=== PATIENT | male | born 1945 | race Caucasian/White ===

== ENCOUNTER 2018-05-12 17:11 | Emergency (ER) | payer MEDICARE, OTHER ==
[2018-05-12] MEDS ORDERED: SODIUM CHLORIDE 0.9% 1,000 ML IV STA ×3 (17:53→19:36)
[2018-05-12] MEDS ORDERED: ACETAMINOPHEN TAB 500 MG TAB PO STA (17:53)
[2018-05-12] MEDS ORDERED: DIPH,PERTUS(ACELL)TETVAC-LF 0.5 ML VIAL IM ONE (17:53)
[2018-05-12] MEDS ORDERED: RX INFO: IV CONTRAST WAS GIVEN 1 EACH MISC MISCELLANE PRN (17:54)
[2018-05-12] MEDS ORDERED: ceFAZolin IN SWFI 2 GM/20 ML SYRINGE IVP STA (17:54)
[2018-05-12 18:25] LABS: ALT 29 U/L (21-72); AST 27 U/L (17-59); Albumin 3.9 g/dL (3.5-5.0); Alcohol 78 mg/dL; Alkaline Phosphatase 86 U/L (38-126); Anion Gap 10 mmol/L; Blood Urea Nitrogen 15 mg/dL (9-20); Calcium 9.1 mg/dL (8.4-10.2); Carbon Dioxide 25 mmol/L (22-30); Chloride 103 mmol/L (98-107); Glucose 92 mg/dL (74-99); Potassium 4.1 mmol/L (3.5-5.1); Sodium 138 mmol/L (137-145); Total Bilirubin 0.4 mg/dL (0.2-1.3); Total Protein 6.7 g/dL (6.3-8.2)
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
[2018-05-12 18:26] LABS: Partial Thromboplastin Time 23.4 sec (22.0-30.0); Prothrombin Time 10.1 sec (9.0-12.0)
[2018-05-12 18:27] LABS: Appearance,Urine Clear (Clear); Bilirubin,Urine Negative (Negative); Blood,Urine Negative (Negative); Color,Urine Yellow; Glucose,Urine (UA) Negative (Negative); Ketones,Urine Negative (Negative); Leukocyte Esterase,Urine Negative (Negative); Nitrite,Urine Negative (Negative); Protein,Urine Trace (Negative); Specific Gravity,Urine 1.014 (1.001-1.035); Urobilinogen,Urine <2.0 mg/dL (<2.0)
[2018-05-12 18:33] LABS: Basophils # (A) 0.1 k/uL (0-0.2); Basophils % (A) 0 %; Eosinophils # (A) 0.3 k/uL (0-0.7); Eosinophils % (A) 2 %; HCT 44.4 % (39.0-53.0); HGB 14.6 gm/dL (13.0-17.5); Lymphocytes # (A) 1.6 k/uL (1.0-4.8); Lymphocytes % (A) 12 %; MCH 31.5 pg (25.0-35.0); MCV 95.6 fL (80.0-100.0); Mean Platelet Volume 6.1; Monocytes # (A) 0.6 k/uL (0-1.0); Monocytes % (A) 4 %; Neutrophils # (A) 10.7 k/uL (1.3-7.7); Neutrophils % (A) 80 %; Platelet Count 292 k/uL (150-450); RBC 4.64 m/uL (4.30-5.90); RDW 13.2 % (11.5-15.5); WBC 13.3 k/uL (3.8-10.6)
[2018-05-12 18:37] LABS: Amphetamine Screen,Urine Not Detected (NotDetected); Barbiturate Screen,Urine Not Detected (NotDetected); Benzodiazepines Screen,Urine Not Detected (NotDetected); Cocaine Screen,Urine Not Detected (NotDetected); Methadone Screen, Urine Not Detected (NotDetected); Opiate Screen,Urine Not Detected (NotDetected); Oxycodone Screen, Urine Not Detected (NotDetected); Phencyclidine Screen,Urine Not Detected (NotDetected); Tricyclic Antidepressant,Urine Not Detected (NotDetected); Urn Cannabinoid Scrn Not Detected (NotDetected)
[2018-05-12 18:40] LABS: Creatine Kinase 328 U/L (55-170)
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
[2018-05-12 18:53] LABS: Creatine Kinase MB 1.1 ng/mL (0.0-2.4); Troponin I <0.012 ng/mL (0.000-0.034)
[2018-05-12] MEDS ORDERED: ONDANSETRON 4 MG/2 ML VIAL IVP STA (19:36)
[2018-05-12] MEDS ORDERED: MORPHINE SULFATE 4 MG/ML SYRINGE IVP STA (19:36)
[2018-05-12 19:42] VITALS: BP 111/59; PULSE 80; RESP 17; TEMP 97.8
== END 2018-05-12 20:16 | disposition other institution (70) ==
LOC: EC 17:11
DX: S72.451B Displaced supracondylar fracture without intracondylar extension of lower end of right femur, initial encounter for open fracture type I or II (principal); F10.120 Alcohol abuse with intoxication, uncomplicated; S05.41XA Penetrating wound of orbit with or without foreign body, right eye, initial encounter; K21.9 Gastro-esophageal reflux disease without esophagitis; Z85.820 Personal history of malignant melanoma of skin; Z98.890 Other specified postprocedural states; Z79.899 Other long term (current) drug therapy; Z23 Encounter for immunization; W11.XXXA Fall on and from ladder, initial encounter
CPT/HCPCS: 99285 ×2; 27503 ×2; 96374 ×2; 96375 ×3; 96361 ×3; 90471 ×2; 36415; 93005; 86900; 86901; 80053; 82550; 82553; 83605; 84484; 85025; 85610; 85730; 86850; 81003; 80306; 73560; 90715; G0480; J2270; J2405; J0690; 80320

== ENCOUNTER 2018-06-10 13:09 | Emergency (ER) | payer MEDICARE, OTHER ==
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
[2018-06-10 14:52] LABS: Basophils % (A) 0 %; Eosinophils # (A) 0.2 k/uL (0-0.7); Eosinophils % (A) 2 %; Lymphocytes # (A) 1.9 k/uL (1.0-4.8); Lymphocytes % (A) 21 %; MCH 32.4 pg (25.0-35.0); MCV 95.1 fL (80.0-100.0); Mean Platelet Volume 6.3; Monocytes # (A) 0.7 k/uL (0-1.0); Monocytes % (A) 7 %; Neutrophils # (A) 5.8 k/uL (1.3-7.7); Neutrophils % (A) 66 %; Platelet Count 329 k/uL (150-450); RDW 13.4 % (11.5-15.5); WBC 8.7 k/uL (3.8-10.6)
[2018-06-10 15:00] LABS: HGB 13.3 gm/dL (13.0-17.5)
[2018-06-10 15:01] LABS: ALT 43 U/L (21-72); AST 30 U/L (17-59); Albumin 3.7 g/dL (3.5-5.0); Alkaline Phosphatase 157 U/L (38-126); Anion Gap 8 mmol/L; Blood Urea Nitrogen 20 mg/dL (9-20); Calcium 9.3 mg/dL (8.4-10.2); Carbon Dioxide 26 mmol/L (22-30); Chloride 104 mmol/L (98-107); Glucose 102 mg/dL (74-99); Partial Thromboplastin Time 27.7 sec (22.0-30.0); Potassium 4.5 mmol/L (3.5-5.1); Sodium 138 mmol/L (137-145); Total Bilirubin 0.5 mg/dL (0.2-1.3)
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
[2018-06-10 15:48] VITALS: BP 119/70; PULSE 77; RESP 20; TEMP 98.1
== END 2018-06-10 15:48 | disposition home or self-care (01) ==
LOC: EC 13:09
DX: T81.41XA Infection following a procedure, superficial incisional surgical site, initial encounter (principal); K21.9 Gastro-esophageal reflux disease without esophagitis; Z87.19 Personal history of other diseases of the digestive system; Z85.820 Personal history of malignant melanoma of skin; Z98.890 Other specified postprocedural states; Z79.899 Other long term (current) drug therapy
CPT/HCPCS: 36415; 80053; 83605; 85025; 85610; 85730; 87040; 99283

== ENCOUNTER → 2018-12-07 | Outpatient (CLI) | payer MEDICARE, OTHER ==
[2018-12-07 10:33] LABS: HCT 46.3 % (39.0-53.0); HGB 15.8 gm/dL (13.0-17.5); MCH 30.5 pg (25.0-35.0); MCHC 34.1 g/dL (31.0-37.0); MCV 89.6 fL (80.0-100.0); Mean Platelet Volume 6.8; Platelet Count 350 k/uL (150-450); RBC 5.17 m/uL (4.30-5.90); RDW 14.8 % (11.5-15.5); WBC 9.4 k/uL (3.8-10.6)
[2018-12-07 11:30] LABS: Erythrocyte Sedimentation Rate 17 mm/hr (0-15)
== END ==
LOC: LABWHC1 09:30
PROVIDERS: ATTEND Orthopaedic Surgery
DX: E55.9 Vitamin D deficiency, unspecified (principal)
CPT/HCPCS: 36415; 82306; 85027; 85652; 86140

== ENCOUNTER 2019-01-22 13:13 | Emergency (ER) | payer MEDICARE, OTHER ==
[2019-01-22 15:00] VITALS: RESP 18
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
--- NOTE | 2019-01-22 16:00 | US ---
EXAMINATION TYPE: US venous doppler duplex UE RT DATE OF EXAM: 01/22/2019 COMPARISON: NONE CLINICAL HISTORY: Pain. Pain right arm x 4 days. PT on blood thinners. No HX DVT. PICC line placed . SIDE PERFORMED: Right Right Arm: Right cephalic vein appears non-compressible and shows minimal color flow. Echoes seen judith rounding PICC line. No evidence of DVT in the right upper extremity. IMPRESSION: Positive superficial venous thrombosis surrounding the PICC line within the right cephali c vein. No sonographic evidence of deep venous fibrosis within the right upper extremity.
[2019-01-22 16:45] VITALS: BP 117/70; PULSE 87; TEMP 97.6
== END 2019-01-22 16:45 | disposition home or self-care (01) ==
LOC: EC 13:13 → SUPCPDRO 13:13 → EC 16:45
DX: I80.8 Phlebitis and thrombophlebitis of other sites (principal); K21.9 Gastro-esophageal reflux disease without esophagitis; Z79.899 Other long term (current) drug therapy; Z85.820 Personal history of malignant melanoma of skin
CPT/HCPCS: 99283

== ENCOUNTER → 2019-04-03 | Outpatient (CLI) | payer MEDICARE, OTHER ==
--- NOTE | 2019-04-03 09:14 | CT ---
EXAMINATION TYPE: CT chest wo con DATE OF EXAM: 04/03/2019 COMPARISON: None HISTORY: Interstitial pulmonary disease,unspecified CT DLP: 422 mGycm. Automated Exposure Control for Dose Reduction was Utilized. TECHNIQUE: CT scan of the thorax is performed without IV contrast. FINDINGS: LUNGS: Diffuse bronchiectasis, which appears worse in the lung bases. Scattered groundglass interstit ial opacities predominantly located along the periphery of the bilateral lungs and appearing worse in the lung bases. Mild fibrosis is seen at the bilateral lateral and posterior lower lobes. Calcified granuloma is seen in the anteromedial left upper lobe on image 16. There is a confluence of soft tissue density seen in the right infrahilar region on image 32 with sli ghtly asymmetric right-sided nidia prominence. No pleural effusion. MEDIASTINUM: Lack of IV contrast is noted to limit evaluation for mediastinal and especially hilar ad enopathy. There are a few enlarged mediastinal lymph nodes with the largest seen measuring up to 1.2 cm and on image 21 located to the right and anterior to the trachea. No evidence of axillary lymphade nopathy. No cardiomegaly or pericardial effusion is seen. OTHER: Right-sided upper pole renal cyst measuring up to 2.3 cm. Otherwise, visualized upper abdomen is grossly unremarkable. Mild kyphosis of the thoracic spine. No acute compression deformity. IMPRESSION: Diffuse interstitial lung disease and bronchiectasis with early pulmonary fibrosis seen in the inferi or lower lobes. [place] of soft tissue density seen in the right infrahilar region with slightly asymmetric medias tinal lymphadenopathy. Infrahilar mass would be difficult to exclude on noncontrast imaging. Further evaluation with CT of the chest with contrast is recommended.
== END | disposition home or self-care (01) ==
LOC: RADCTMAIN 08:16
PROVIDERS: ATTEND Family Medicine
DX: J47.9 Bronchiectasis, uncomplicated (principal); J84.10 Pulmonary fibrosis, unspecified
CPT/HCPCS: 71250

== ENCOUNTER 2019-04-04 23:54 | Emergency (ER) | payer MEDICARE, OTHER ==
[2019-04-05 00:08] VITALS: BP 123/75; PULSE 85; RESP 20; TEMP 97.9
[2019-04-05 01:11] LABS: Basophils # (A) 0.1 k/uL (0-0.2); Basophils % (A) 1 %; Eosinophils # (A) 0.5 k/uL (0-0.7); Eosinophils % (A) 7 %; HCT 41.5 % (39.0-53.0); HGB 13.6 gm/dL (13.0-17.5); Lymphocytes # (A) 2.1 k/uL (1.0-4.8); Lymphocytes % (A) 27 %; MCH 28.3 pg (25.0-35.0); MCHC 32.9 g/dL (31.0-37.0); MCV 86.2 fL (80.0-100.0); Mean Platelet Volume 7.3; Monocytes # (A) 0.7 k/uL (0-1.0); Monocytes % (A) 9 %; Neutrophils # (A) 4.4 k/uL (1.3-7.7); Neutrophils % (A) 56 %; Platelet Count 342 k/uL (150-450); RBC 4.81 m/uL (4.30-5.90); RDW 13.3 % (11.5-15.5); WBC 7.9 k/uL (3.8-10.6)
[2019-04-05 01:18] LABS: Calcium 9.3 mg/dL (8.4-10.2); Potassium 4.4 mmol/L (3.5-5.1)
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
== END 2019-04-05 01:50 | disposition home or self-care (01) ==
LOC: EC 23:54
DX: Z71.1 Person with feared health complaint in whom no diagnosis is made (principal); K21.9 Gastro-esophageal reflux disease without esophagitis; Z79.899 Other long term (current) drug therapy; Z85.820 Personal history of malignant melanoma of skin
CPT/HCPCS: 36415; 80048; 85025; 93005; 99285

== ENCOUNTER → 2019-04-27 | Outpatient (CLI) | payer MEDICARE, OTHER ==
[2019-04-30 13:16] LABS: Alt. alternata IgE Class CLASS 0; Alternaria alternata IgE <0.35 kU/L (<0.35); Asperg. fumagatus IgE <0.35 kU/L (<0.35); Asperg. fumagatus IgE Class CLASS 0; Candida albicans IgE Class CLASS 0; Clad herbarum IgE <0.35 kU/L (<0.35); Clad herbarum IgE Class CLASS 0; Latex IgE Class CLASS 0; Mucor racemosus IgE <0.35 kU/L (<0.35); Mucor racemosus IgE Class CLASS 0; Penicillium chrysogenum IgE <0.35 kU/L (<0.35); Penicillium chrysogenum IgE Cl CLASS 0
== END | disposition home or self-care (01) ==
LOC: LABWHC1 11:43
PROVIDERS: ATTEND Internal Medicine Sleep Medicine
DX: B44.81 Allergic bronchopulmonary aspergillosis (principal)
CPT/HCPCS: 36415; 82785; 86001; 86003; 86606; 86609

== ENCOUNTER 2019-05-03 11:42 | Day surgery (SDC) | payer MEDICARE, OTHER ==
[2019-05-01 13:45] VITALS: BMI 25.8
[2019-05-03 12:06] VITALS: TEMP 98.1
[2019-05-03] MEDS ORDERED: LIDOCAINE 1% 20 ML VIAL (10MG/ML) FOR IV START INTRADERMA ONE (12:10)
[2019-05-03] MEDS ORDERED: LACTATED RINGERS 1,000 ML IV ONE (12:11)
[2019-05-03] MEDS ORDERED: fentaNYL (PF) 50 MCG/ML 2 ML AMP ONE (13:32)
[2019-05-03] MEDS ORDERED: PROPOFOL 10 MG/ML 20 ML VIAL IV ONE (13:32)
[2019-05-03] MEDS ORDERED: LIDOCAINE 1% INJ 10MG/ML (20 ML MDV) ONE (13:32)
[2019-05-03] MEDS ORDERED: LIDOCAINE 2% INJ 20 MG/ML INTRATRACH ONE (13:50)
[2019-05-03 13:59] VITALS: RESP 18
[2019-05-03 14:09] VITALS: BP 124/77; PULSE 65
--- NOTE | 2019-05-03 15:20 | P.PCN ---
Date of Procedure: 05/03/19 Preoperative Diagnosis: Pulmonary fibrosis, bronchiectasis, rule out pneumonia Postoperative Diagnosis: As above Procedure(s) Performed: Bronchoscopy, bronchoalveolar lavage Anesthesia: MAC Surgeon: Marc Washington Estimated Blood Loss (ml): 0 Condition: stable Disposition: same day Indications for Procedure: Pulmonary fibrosis, bronchiectasis, rule out pneumonia Operative Findings: Normal airways Description of Procedure: Patient prepared and draped in a usual fashion for anesthesia was given by a nurse dumping machine operator, fiberoptic bronchoscope was passed through the right nares, bronchoscope was advanced to the laryngeal area, vocal cords normal structure infection, tip of the scope was passed beyond the vocal cords into the trachea, right upper lobe middle lobe and lower lobe followed by left upper lobe lingular lobe and lower lobe inspection was done with subsegments BAL was performed from the right upper lobe right upper lobe and left lower lobe patient tolerated the procedure well no complication noted no endobronchial mass or lesion was ident ified
== END 2019-05-03 14:32 | disposition home or self-care (01) ==
LOC: ORWHC2ENDO 11:42
PROVIDERS: ATTEND Internal Medicine Sleep Medicine
DX: J47.9 Bronchiectasis, uncomplicated (principal); J84.10 Pulmonary fibrosis, unspecified; J44.9 Chronic obstructive pulmonary disease, unspecified; J98.4 Other disorders of lung; G47.33 Obstructive sleep apnea (adult) (pediatric); Z99.89 Dependence on other enabling machines and devices; N40.0 Benign prostatic hyperplasia without lower urinary tract symptoms; K21.9 Gastro-esophageal reflux disease without esophagitis; Z79.899 Other long term (current) drug therapy
CPT/HCPCS: 87798 ×4; 87541; 87496; 87498; 87529; 87252; 87502; 87634; 87070; 87205; 87116; 87102; 87206; 87299; 31624; J2001 ×2; J3010; J2704

== ENCOUNTER 2019-07-18 09:15 | Day surgery (SDC) | payer MEDICARE, OTHER ==
[2019-07-16 14:00] VITALS: BMI 25.8
[~2019-07-18 09:15] MED LIST: LACTATED RINGERS 1,000 ML IV SCH
[2019-07-18 09:49] VITALS: TEMP 97
[2019-07-18] MEDS ORDERED: PROPOFOL 10 MG/ML 20 ML VIAL IV ONE (10:47)
[2019-07-18] MEDS ORDERED: LIDOCAINE 1% INJ 10MG/ML (20 ML MDV) ONE (10:47)
--- NOTE | 2019-07-18 11:09 | P.PCN ---
Date of Procedure: 07/18/19 Procedure(s) Performed: Brief history: Patient is a pleasant 74-year-old white male scheduled for an elective upper endoscopy as well as colonoscopy as a part of evaluation of long-standing history of GERD and prior history of colon polyps. Last colonoscopy was 5 years ago. Procedure performed: Esophagogastroduodenoscopy with biopsy Colonoscopy Preoperative diagnosis: Long-standing history of GERD History of colon polyps Anesthesia: MAC Procedure: After informed consent was obtained from the patient was brought into the endoscopy unit and IV sedation was administered by anesthesia under continuous monitoring. Initially upper endoscopy was done. The Olympus GF 160 video endoscope was inserted inserted into the mouth and esophagus intubated without any difficulty and was gradually advanced into the stomach and duodenum and carefully examined. The bulb and second part of the duodenum appeared normal. The scope was then withdrawn into the stomach adequately insufflated with air and upon careful examination the antrum had mild gastritis and biopsies were done from this area. The body, cardia and fundus appeared normal. The scope was then withdrawn into the esophagus. The GE junction was located at 35 cm to the incismall hiatal hernia noted. There was long segment Shook's esophagus extending from 31-35 cm from the incisors and multiple biopsies were done from the segment of Shook's esophagus. The mucosa appeared normal with no evidence of nodularity or erosions or ulcerations.Rest of the esophagus appeared normal. Patient tolerated the procedure well. At this time the patient continued to remain sedation. Initial digital rectal examination was normal. Olympus CF 160 video colonoscope was then inserted into the rectum and gradually advanced to the cecum without any difficulty. Careful examination was performed as the scope was gradually being withdrawn. The prep was excellent. The cecum, ascending colon, transverse colon, descending colon, sigmoid colon and rectum appeared normal. At her sigmoid diverticulosis. Retroflexion was performed in the rectum and small internal hemorrhoids were noted. Patient tolerated the procedure well. Impression: 1. 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 Colonoscopy revealed scattered similar diverticulosis and small internal hemorrhoids Recommendations: Findings of this examination were discussed with the patient as well as his family. He was advised to follow with the biopsy results. He will continue with omeprazole 20 mg daily and follow antireflux measures. If the biopsy confirms Shook's esophagus he can have a repeat upper endoscopy in 2 years . He can have a repeat colonoscopy in 5 years
[2019-07-18 11:16] VITALS: RESP 16
[2019-07-18 11:31] VITALS: BP 135/87; PULSE 70
== END 2019-07-18 11:46 | disposition home or self-care (01) ==
LOC: ORWHC2ENDO 09:15
PROVIDERS: ATTEND Internal Medicine Gastroenterology
DX: K22.70 Barrett's esophagus without dysplasia (principal); K29.50 Unspecified chronic gastritis without bleeding; K44.9 Diaphragmatic hernia without obstruction or gangrene; K57.30 Diverticulosis of large intestine without perforation or abscess without bleeding; K64.8 Other hemorrhoids; K21.9 Gastro-esophageal reflux disease without esophagitis; Z86.010 Personal history of colon polyps; Z79.899 Other long term (current) drug therapy; Z79.1 Long term (current) use of non-steroidal anti-inflammatories (NSAID)
CPT/HCPCS: 88305; 45378; 43239; J2001; J2704

== ENCOUNTER → 2020-04-29 | Outpatient (CLI) | payer MEDICARE, OTHER ==
--- NOTE | 2020-04-29 11:31 | XR ---
EXAMINATION TYPE: XR knee complete RT DATE OF EXAM: 04/29/2020 CLINICAL HISTORY: Right knee surgery progress study. TECHNIQUE: Three views of the right knee are obtained. COMPARISON: Right knee x-ray June 10, 2018. FINDINGS: Interval removal of lateral fixating plate. New intramedullary mitzi with 2 transverse proxim al fixating screws and 2 larger distal transverse fixating screws extending into proximal tibia where there is arthrodesis redemonstrated. Some dystrophic calcifications and radiodense foreign body in the posterior soft tissue beginning pro ximal tibial level extending distally is redemonstrated. Old displaced nonunion fracture proximal fib ular diaphysis is again seen. There is increased sclerosis and resorption of portion of the linear glen cency distal femoral level redemonstrated. Alignment unchanged. Advanced patellofemoral joint narrowi ng redemonstrated. IMPRESSION: As above.
== END | disposition home or self-care (01) ==
LOC: RADXRMAIN 10:58
PROVIDERS: ATTEND Orthopaedic Surgery
DX: S80.251A Superficial foreign body, right knee, initial encounter (principal); M25.861 Other specified joint disorders, right knee; Z87.81 Personal history of (healed) traumatic fracture; Z98.1 Arthrodesis status

== ENCOUNTER → 2020-04-29 | Outpatient (CLI) | payer MEDICARE, OTHER ==
--- NOTE | 2020-04-29 11:41 | XR ---
EXAMINATION TYPE: XR lumbar spine 2 or 3V DATE OF EXAM: 04/29/2020 CLINICAL HISTORY: Low back pain for months. TECHNIQUE: Frontal and lateral images of the lumbar spine are obtained. COMPARISON: None FINDINGS: There are 5 lumbar type vertebral bodies identified. Lumbar spine shows straightening alig nment. There is slight grade 1 retrolisthesis L2 on L3 and L5 on S1. Vertebral body heights are maint ained. Moderate to severe disc space narrowing L3-L4 level greatest right aspect with mild to moderat e spurring. Mild disc space narrowing L4-L5 level. Mild to moderate disc space narrowing with vacuum disc phenomenon L5-S1 level. There is 2.1 cm lobulated left renal calculus at L2 level noted. IMPRESSION: As above.
== END | disposition home or self-care (01) ==
LOC: RADXRMAIN 10:53
PROVIDERS: ATTEND Physician Assistant
DX: M99.73 Connective tissue and disc stenosis of intervertebral foramina of lumbar region (principal); M43.16 Spondylolisthesis, lumbar region; M43.17 Spondylolisthesis, lumbosacral region
CPT/HCPCS: 72100

== ENCOUNTER 2021-10-08 10:33 | Emergency (ER) | payer MEDICARE, OTHER ==
[2021-10-08 11:07] VITALS: BP 121/75; PULSE 87; RESP 16; TEMP 98.1
[2021-10-08 11:48] LABS: Basophils # (A) 0.1 k/uL (0-0.2); Basophils % (A) 1 %; Eosinophils # (A) 0.5 k/uL (0-0.7); Eosinophils % (A) 5 %; HCT 48.6 % (39.0-53.0); HGB 16.6 gm/dL (13.0-17.5); Lymphocytes # (A) 2.6 k/uL (1.0-4.8); Lymphocytes % (A) 28 %; MCH 32.7 pg (25.0-35.0); MCHC 34.1 g/dL (31.0-37.0); MCV 95.9 fL (80.0-100.0); Mean Platelet Volume 6.9; Monocytes # (A) 0.6 k/uL (0-1.0); Monocytes % (A) 6 %; Neutrophils # (A) 5.3 k/uL (1.3-7.7); Neutrophils % (A) 58 %; Platelet Count 275 k/uL (150-450); RBC 5.07 m/uL (4.30-5.90); RDW 13.4 % (11.5-15.5); WBC 9.2 k/uL (3.8-10.6)
[2021-10-08 11:56] LABS: Calcium 9.6 mg/dL (8.4-10.2); Potassium 4.4 mmol/L (3.5-5.1); Total Bilirubin 0.7 mg/dL (0.2-1.3); Total Protein 7.9 g/dL (6.3-8.2)
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
== END 2021-10-08 12:50 | disposition home or self-care (01) ==
LOC: EC 10:33
DX: I10 Essential (primary) hypertension (principal); Z71.1 Person with feared health complaint in whom no diagnosis is made; K21.9 Gastro-esophageal reflux disease without esophagitis
CPT/HCPCS: 36415; 80053; 85025; 99283

== ENCOUNTER → 2021-12-17 | Outpatient (CLI) | payer MEDICARE, OTHER ==
--- NOTE | 2021-12-17 23:36 | CT ---
EXAMINATION TYPE: CT chest w con DATE OF EXAM: 12/17/2021 COMPARISON: CT chest without contrast 04/03/2019 HISTORY: pulmonary fibrosis CT DLP: 354 mGycm. Automated Exposure Control for Dose Reduction was Utilized. TECHNIQUE: Multiple contiguous axial CT images of the chest were obtained with IV Contrast, patient i njected with 80cc mL of Isovue 300. Sagittal and coronal reformatted images were obtained. FINDINGS: Enlargement of the cardiac size. Moderate coronary artery calcifications. No pericardial effusion. Th oracic aorta and main pulmonary arteries are of normal caliber. Mildly prominent hilar and mediastina l lymph nodes some of which are calcified. Diffuse bronchiectasis is again seen with a lower lung predominance. Mildly progressed subpleural mas s opacity and a calculation throughout the lungs most pronounced in the lung bases. No dense focal co nsolidation. No pleural effusion or pneumothorax. No suspicious pulmonary nodules. Scattered calcifie d granulomas. Visualized osseous structures appear intact. Moderate multilevel degenerative changes of the thoracic spine. Limited visualization of the upper abdomen demonstrates unchanged right renal cyst. IMPRESSION: 1. Mildly progressed subpleural reticulation and groundglass opacity with a lower lobe predominance c onsistent with known interstitial lung disease.
== END | disposition home or self-care (01) ==
LOC: RADCTMAIN 17:03
PROVIDERS: ATTEND Internal Medicine Critical Care Medicine
DX: R91.8 Other nonspecific abnormal finding of lung field (principal); J84.9 Interstitial pulmonary disease, unspecified
CPT/HCPCS: 82565; 84520; 71260; 36415; Q9967

== ENCOUNTER → 2022-03-10 | Outpatient (CLI) | payer MEDICARE, OTHER ==
--- NOTE | 2022-03-10 08:53 | CT ---
EXAMINATION TYPE: CT abdomen pelvis wo con DATE OF EXAM: 03/10/2022 COMPARISON: CT chest 12/17/2021 HISTORY: Left side flank pain CT DLP: 873 mGycm Automated exposure control for dose reduction was used. TECHNIQUE: Helical acquisition of images from the lung bases through the pelvis. FINDINGS: Lack of intravenous contrast could compromise sensitivity. Coronary artery calcifications a re present. LUNG BASES: Extensive interstitial changes are present, findings consistent with pulmonary fibrosis, see dictated report CT chest 12/09/2021 AORTA: There is some mild atheromatous change present, no evident aneurysm LIVER/GB: No significant abnormality is appreciated. PANCREAS: No significant abnormality is seen. SPLEEN: No significant abnormality is seen. ADRENALS: No significant abnormality is seen. KIDNEYS: There is a left renal pelvic calcification present measuring proximately 18-19 mm in greates t dimension. Additional calcifications present at the left kidney are punctate measuring only 2 to 3 mm, 3 additional calcifications present, punctate calcification present at the lower pole the right k idney also nonobstructive, exophytic cortical cysts suspected posterior aspect of the right kidney me asuring 3 cm with borderline Hounsfield unit measurement, there is no evident ureteral calcification bilaterally. There may be some mild caliectasis on the left REPRODUCTIVE ORGANS: No significant abnormality is seen. URINARY BLADDER: Not distended. BOWEL: Diverticular changes noted in the sigmoid colon, descending colon, appendix is not seen FREE AIR: No Free Air is visible. ASCITES: None visible. PELVIC ADENOPATHY: None visualized. RETROPERITONEAL ADENOPATHY: No Retroperitoneal Adenopathy visible. OSSEOUS STRUCTURES: Degenerative disc changes with facet arthropathy noted in the lumbar spine IMPRESSION: SIZABLE LEFT RENAL CALCULUS IN THE RENAL PELVIS, BILATERAL NEPHROLITHIASIS, MILD CALIECTASIS ON THE L EFT. ADDITIONAL FINDINGS ABOVE. CONSIDER FOLLOW-UP FOR RIGHT PROBABLE CORTICAL CYST
== END | disposition home or self-care (01) ==
LOC: RADCTMAIN 07:59
PROVIDERS: ATTEND Urology
DX: N20.0 Calculus of kidney (principal); N28.89 Other specified disorders of kidney and ureter
CPT/HCPCS: 74176

== ENCOUNTER → 2022-04-27 | Outpatient (CLI) | payer MEDICARE, OTHER ==
[2022-04-27 14:44] LABS: Basophils # (A) 0.06 X 10*3/uL (0.00-0.10); Basophils % (A) 0.4 %; Eosinophils # (A) 0.17 X 10*3/uL (0.04-0.35); Eosinophils % (A) 1.2 %; HCT 49.7 % (39.6-50.0); HGB 16.9 g/dL (13.0-17.0); Immature Grans, Automated 1.2 %; Lymphocytes # (A) 3.56 X 10*3/uL (0.90-5.00); Lymphocytes % (A) 25.8 %; MCH 32.5 pg (27.0-32.0); MCV 95.6 fL (80.0-97.0); Mean Platelet Volume 9.8 fL (9.5-12.2); Monocytes # (A) 0.84 X 10*3/uL (0.20-1.00); Monocytes % (A) 6.1 %; NRBC Per 100 WBC 0 /100 WBCS (0.0-0.0); Neutrophils % (A) 65.3 %; Platelet Count 202 X 10*3/uL (140-440); RDW 12.8 % (11.5-14.5); WBC 13.79 X 10*3/uL (4.50-10.00)
[2022-04-27 15:31] LABS: African American GFR (CKD) 68.6 (60.0-200.0); Albumin 4.2 g/dL (3.8-4.9); Albumin/Globulin Ratio 1.64 (1.60-3.17); BUN/Creat Ratio 13.33 Ratio (12.00-20.00); Calcium 9.9 mg/dL (8.7-10.3); Globulin 2.6 g/dL (1.6-3.3); Non-African American GFR(CKD) 59.2 (60.0-200.0); Potassium 5.1 mmol/L (3.5-5.5); Total Bilirubin 0.5 mg/dL (0.30-1.20); Total Protein 6.8 g/dL (6.2-8.2)
[2022-04-27 15:52] LABS: Appearance,Urine Clear (Clear); Bilirubin,Urine Negative (Negative); Blood,Urine Small (Negative); Color,Urine Yellow (Yellow); Ketones,Urine Negative (Negative); Nitrite,Urine Negative (Negative); Specific Gravity,Urine 1.018 (1.001-1.030); Urobilinogen,Urine 0.2 (0.2,1.0)
[2022-04-27 15:58] LABS: Bacteria,Urine None Seen /HPF (None Seen)
== END | disposition home or self-care (01) ==
LOC: LABPAT 09:26
PROVIDERS: ATTEND Urology
DX: Z01.812 Encounter for preprocedural laboratory examination (principal); N20.0 Calculus of kidney
CPT/HCPCS: 80053; 81001; 85025; 87086

== ENCOUNTER 2022-05-05 07:01 | Day surgery (SDC) | payer MEDICARE, OTHER ==
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
[~2022-05-05 07:01] MED LIST changes: +HYDROmorphone 0.5 MG/0.5 ML SYRINGE IVP PRN; -LACTATED RINGERS 1,000 ML IV SCH; +LIDOCAINE 1% (10MG/ML) FOR IV START INTRADERMA PRN; +ONDANSETRON 4 MG/2 ML VIAL IVP ONE
[2022-05-05] MEDS ORDERED: LACTATED RINGERS 1,000 ML IV ONE ×2 (07:51→10:30)
--- NOTE | 2022-05-05 09:05 | XR ---
EXAMINATION TYPE: XR KUB DATE OF EXAM: 05/05/2022 7:13 AM INDICATION: Patient age:Male; 76 years old; Reason for study: PRE-OP: LOCATION OF RENAL CALCULI; [facility]. COMPARISON: None. TECHNIQUE: One radiographic view of the abdomen was obtained. FINDINGS: Left upper quadrant calculus measuring up to 25 mm. Multiple disc degeneration changes thro ughout the spine. Atherosclerosis of the arterial vasculature. IMPRESSION: Left upper quadrant renal calculus measuring up to 25 mm.
[2022-05-05] MEDS ORDERED: PROPOFOL 10 MG/ML 20 ML VIAL IV ONE (09:30)
[2022-05-05] MEDS ORDERED: ROCURONIUM 10 MG/ML (5 ML VIAL) IV ONE (09:30)
[2022-05-05] MEDS ORDERED: fentaNYL (PF) 50 MCG/ML 2 ML AMP ONE (09:30)
[2022-05-05] MEDS ORDERED: LIDOCAINE 2% INJ 20 MG/ML (2 ML VIAL) ONE (09:30)
[2022-05-05] MEDS ORDERED: SUCCINYLCHOLINE CHLORIDE 200 MG/10 ML VIAL IV ONE (09:30)
[2022-05-05] MEDS ORDERED: HYDROmorphone (PF) 1 MG/ML ONE (09:30)
[2022-05-05] MEDS ORDERED: IOPAMIDOL-370 50ML BTL MISCELLANE ONE (09:31)
[2022-05-05] MEDS ORDERED: MAG HYDROX/AL HYDROX/SIMETH 30 ML CUP PO PRN (11:14)
[2022-05-05] MEDS ORDERED: ACETAMINOPHEN TAB 325 MG TAB PO PRN (11:14)
[2022-05-05] MEDS ORDERED: NALOXONE 0.4 MG/ML 1 ML VIAL IV PRN (11:16)
[2022-05-05] MEDS ORDERED: HYDROmorphone PCA 10 MG/50 ML BAG IV PRN (11:16)
--- NOTE | 2022-05-05 11:20 | P.OP ---
Date of Procedure: 05/05/22 Preoperative Diagnosis: Left renal stone, large Postoperative Diagnosis: Same Procedure(s) Performed: Cystoscopy, placement of occluding balloon catheter left, percutaneous nephrostomy left (Dr. drummond), percutaneous nephrostolithotomy with ultrasound, placement of 10-Japanese J left nephrostomy tube Anesthesia: RIO Surgeon: Scout Kirkland Estimated Blood Loss (ml): 50 Pathology: other (Stone) Condition: stable Disposition: PACU Indications for Procedure: The patient is 76. He has a greater than 2 cm left renal pelvis stone in a bifid renal pelvis. He comes for percutaneous nephrostolithotomy left because of pain Description of Procedure: The patient is brought to the operating suite. On the transport rodo is given a general anesthetic. He's placed in lithotomy position with a sterile prep and drape. Cystoscopy with a Foroblique lens and 21-Japanese sheath identifies a normal urethra. The prostate shows a high riding bladder neck. Upon entering the bladder the left ureteral orifice is identified. A 5-Japanese occluding balloon catheters passed up into the left renal pelvis. A Kwong catheter is then secured to the ureteral catheter The patient is placed in a prone position with care to airways and extremities. Dr. Drummond of radiology performed percutaneous access to the left lower pole calyx. The track is dilated to 30-Japanese. Introduced the working sheath in the left collecting system. With the rigid scope clot is removed and the stone is identified in the renal pelvis. Ultrasound the stone was broken into smaller fragments and the larger fragments and grasp with the grasping forceps and removed from the collecting system. After I remove all that is visualized then re-fluoroscoped the patient in situ stones it migrated into another upper pole calyx. I passed the flexible scope up into the left upper pole calyx and grasp the stones with a stone basket. I then looked throughout the collecting system and see no remaining stones. A 10-Japanese J nephrostomy tubes placed in the left renal pelvis. It is secured to the skin with 2-0 silk. The patient is awakened and returned recovery room good condition. He tolerated procedure well. Blood loss was approximately 50 mL. We placed in the hospital overnight.
--- NOTE | 2022-05-05 11:50 | FL ---
Intraoperative/procedural fluoroscopic services were provided. Total fluoroscopy time is 52.4 minutes with a total of 8 submitted images to PACS. Please see the operative/procedural note for further det ails.
[2022-05-05] MEDS: LABETALOL 5 MG/ML VIAL MDV IV ONE ×2 (11:56→12:15)
[2022-05-05] MEDS: LACTATED RINGERS 1,000 ML IV SCH (16:31)
[2022-05-05] MEDS: traMADol 50 MG TAB PO SCH ×2 (16:35→20:54)
[2022-05-05] MEDS: DEXTROSE 5%-0.45% NACL 1,000 ML IV SCH (16:37)
[2022-05-05] MEDS: ONDANSETRON 4 MG/2 ML VIAL IVP PRN (16:43)
[2022-05-05] MEDS: PANTOPRAZOLE 40 MG TABLET PO SCH (17:20)
[2022-05-05] MEDS ORDERED: MELATONIN 5 MG TABLET PO SCH (21:00)
[2022-05-06] MEDS: DEXTROSE 5%-0.45% NACL 1,000 ML IV SCH ×2 (02:07→13:02)
[2022-05-06] MEDS: traMADol 50 MG TAB PO SCH ×3 (05:01→15:23)
[2022-05-06] MEDS: LACTATED RINGERS 1,000 ML IV SCH (05:04)
[2022-05-06] MEDS: PANTOPRAZOLE 40 MG TABLET PO SCH ×2 (07:54→17:24)
--- NOTE | 2022-05-06 08:59 | P.DS ---
Providers Attending physician: Scout Kirkland Primary care physician: [facility] Course: This is a 76-year-old male underwent a percutaneous nephrolithotomy by Dr. Toth on May 05. Please see op note dated May 05 for surgery detail. He was admitted to the hospital postoperatively. Kwong catheter was removed on postoperative day #1. He was discharged home on postoperative day #1 with the nephrostomy tube. At time of discharge she was tolerating a diet, ambulating, and pain was controlled Plan - Discharge Summary Discharge Rx Participant: No New Discharge Prescriptions: New HYDROcodone/APAP 5-325MG [Bearden 5-325] 1 tab PO Q6HR PRN 3 Days #10 tab PRN Reason: Pain Sennosides/Docusate Sodium [Senna Plus 8.6-50 mg Tablet] 1 each PO DAILY #7 tablet Ketorolac [Toradol] 10 mg PO Q6HR PRN #15 tab PRN Reason: Pain No Action Omeprazole [PriLOSEC] 20 mg PO BID Cholecalciferol [Vitamin D3] 1,000 unit PO TID traMADol HCL 50 mg PO Q6H Ibuprofen/Diphenhydramine Cit [Motrin Pm Caplet] 2 tab PO HS Ezetimibe [Zetia] 10 mg PO QAM Naproxen 500 mg PO Q12H Discharge Medication List Omeprazole [PriLOSEC] 20 mg PO BID 06/11/14 [History] Cholecalciferol [Vitamin D3] 1,000 unit PO TID 05/12/18 [History] Ezetimibe [Zetia] 10 mg PO QAM 10/08/21 [History] Ibuprofen/Diphenhydramine Cit [Motrin Pm Caplet] 2 tab PO HS 10/08/21 [History] Naproxen 500 mg PO Q12H 10/08/21 [History] traMADol HCL 50 mg PO Q6H 10/08/21 [History] HYDROcodone/APAP 5-325MG [Bearden 5-325] 1 tab PO Q6HR PRN 3 Days #10 tab 05/06/22 [Rx] Ketorolac [Toradol] 10 mg PO Q6HR PRN #15 tab 05/06/22 [Rx] Sennosides/Docusate Sodium [Senna Plus 8.6-50 mg Tablet] 1 each PO DAILY #7 tablet 05/06/22 [Rx] Follow up Appointment(s)/Referral(s): Scout Kirkland MD [STAFF PHYSICIAN] - 1 Week Activity/Diet/Wound Care/Special Instructions: Increase fluid intake No heavy lifting or straining It's normal to have blood in the urine Ok to change dressing around the tube
[2022-05-06] MEDS ORDERED: EZETIMIBE 10 MG TAB PO SCH (09:00)
[2022-05-06] MEDS: ONDANSETRON 4 MG/2 ML VIAL IVP PRN (11:41)
[2022-05-06 14:39] VITALS: BP 142/85; PULSE 96; RESP 17; TEMP 99
== END 2022-05-06 17:57 ==
LOC: OR 07:01 → 4SSUR 11:02 → OR 05-06 17:57
PROVIDERS: ATTEND Urology
DX: N20.0 Calculus of kidney (principal); K21.9 Gastro-esophageal reflux disease without esophagitis; E78.5 Hyperlipidemia, unspecified; I10 Essential (primary) hypertension; R01.1 Cardiac murmur, unspecified; F10.99 Alcohol use, unspecified with unspecified alcohol-induced disorder; G47.30 Sleep apnea, unspecified; J84.10 Pulmonary fibrosis, unspecified; Z98.890 Other specified postprocedural states; Z86.718 Personal history of other venous thrombosis and embolism; Z80.9 Family history of malignant neoplasm, unspecified; Z79.899 Other long term (current) drug therapy
CPT/HCPCS: 86900; 86901; 86850; 82365; 74018; 50432; 52341; 50081; C1769 ×3; C1894; C1729; J2405 ×2; J0690; J1170 ×2; Q9967

== ENCOUNTER → 2023-01-25 | Outpatient (CLI) | payer MEDICARE, OTHER ==
[2023-01-25 10:49] LABS: ABG Base Excess 0.7 mmol/L; ABG HCO3 25 mmol/L (21-25); ABG Oxygen Saturation 83.9 % (94-97); ABG PCO2 35 mmHg (35-45); ABG PH 7.45 (7.35-7.45); ABG TCO2 26 mmol/L (19-24); Allen Test Performed? Yes
[2023-01-25 11:02] LABS: ABG PO2 46 mmHg (83-108)
== END | disposition home or self-care (01) ==
LOC: LABWHC1 10:17
PROVIDERS: ATTEND Internal Medicine Critical Care Medicine
DX: J84.10 Pulmonary fibrosis, unspecified (principal)
CPT/HCPCS: 36600; 82805